=== PATIENT | male | born 2000 | race Caucasian/White ===

== ENCOUNTER 2021-04-26 19:06 | Emergency (ER) | payer OTHER ==
[~2021-04-26 19:06] MED LIST: CILOXAN5 ML OS; NAPROSYN500 MG PO; POLYTRIM EYE DR10 ML OD; ZYRTEC10 MG PO
[2021-04-26] MEDS ORDERED: NORFLEX 100 MG100 MG PO (19:40)
[2021-04-26] MEDS ORDERED: LODINE CAP 300300 MG PO (19:40)
== END 2021-04-26 19:41 | disposition home or self-care (01) ==
LOC: ER1 19:06
DX: M54.9 Dorsalgia, unspecified (principal); F17.210 Nicotine dependence, cigarettes, uncomplicated
CPT/HCPCS: 99283

== ENCOUNTER 2021-05-29 09:36 | Emergency (ER) | payer OTHER ==
[~2021-05-29 09:36] MED LIST changes: +LODINE CAP 300300 MG PO; +NORFLEX 100 MG100 MG PO
[2021-05-29] MEDS ORDERED: CYCLOBENZAPRINE10 MG PO (12:12)
[2021-05-29] MEDS ORDERED: IBUPROFEN600 MG PO (12:12)
== END 2021-05-29 12:16 | disposition home or self-care (01) ==
LOC: ER1 09:36
DX: R07.81 Pleurodynia (principal); M54.6 Pain in thoracic spine; F17.200 Nicotine dependence, unspecified, uncomplicated
CPT/HCPCS: 71111; 72100; 99283

== ENCOUNTER 2021-05-29 14:59 | Emergency (ER) | payer OTHER ==
[~2021-05-29 14:59] MED LIST changes: +CYCLOBENZAPRINE10 MG PO; +IBUPROFEN600 MG PO
== END 2021-05-29 15:40 | disposition left against medical advice (07) ==
LOC: ER1 14:59
DX: Z53.21 Procedure and treatment not carried out due to patient leaving prior to being seen by health care provider (principal)